=== PATIENT | female | born 1980 | race Caucasian/White ===

== ENCOUNTER 2018-04-10 22:09 | Emergency (ER) | payer MEDICAID ==
[~2018-04-10] VITALS: Ht 165.1 cm; Wt 85.7 kg
[2018-04-10 22:17] VITALS: BP 147/90
[2018-04-10] MEDS ORDERED: LANTUS100 UNIT/M (22:26)
[2018-04-10] MEDS ORDERED: HUMALOG100 UNIT/1 (22:26)
[2018-04-10] MEDS ORDERED: NEURONTIN600 MG (22:26)
[2018-04-10] MEDS ORDERED: FLEXERIL (22:27)
[2018-04-10] MEDS ORDERED: XANAX 0.5 MG0.5 M1 (22:27)
== END 2018-04-10 23:00 | disposition left against medical advice (07) ==
LOC: M.ERS 22:09
DX: G89.18 Other acute postprocedural pain (principal); M79.672 Pain in left foot; E10.9 Type 1 diabetes mellitus without complications; F41.9 Anxiety disorder, unspecified; F17.210 Nicotine dependence, cigarettes, uncomplicated; Z86.73 Personal history of transient ischemic attack (TIA), and cerebral infarction without residual deficits; Z88.0 Allergy status to penicillin; Z91.040 Latex allergy status; Z88.8 Allergy status to other drugs, medicaments and biological substances